=== PATIENT | male | born 1965 | race Caucasian/White ===

== ENCOUNTER 2020-05-04 20:59 | Inpatient (IN) | payer OTHER ==
[~2020-05-04] VITALS: Ht 182.9 cm; Wt 68.0 kg
--- NOTE | 2020-05-04 21:05 | NUR ---
Dr. Henderson at bedside for MSE.
[2020-05-04] MEDS ORDERED: IV NORMAL SALINE 1000 ML BAG IV ONE (21:30)
--- NOTE | 2020-05-04 21:30 | NUR ---
Blood/COVID specimen sent with dental laboratory assistant.
[2020-05-04 21:41] LABS: BASOPHILS % (AUTO) 0.5 % (0.0-2.0); EOSINOPHILS # (AUTO) 0.8 K/uL (0.0-0.7); EOSINOPHILS % (AUTO) 13.4 % (0.0-7.0); HEMATOCRIT 40.3 % (36.7-47.1); HEMOGLOBIN 13.4 g/dL (12.5-16.3); LYMPHOCYTES # (AUTO) 1.5 K/uL (20.0-40.0); LYMPHOCYTES % (AUTO) 25.5 % (20.5-51.5); MEAN CORPUSCULAR HEMOGLOBIN 29.6 uug (23.8-33.4); MEAN CORPUSCULAR HGB CONC 33 g/dL (32.5-36.3); MEAN CORPUSCULAR VOLUME 89.1 fL (73.0-96.2); MONOCYTES # (AUTO) 0.4 K/uL (2.0-10.0); NEUTROPHILS # (AUTO) 3.2 K/uL (1.8-8.9); NEUTROPHILS % (AUTO) 53.6 % (38.5-71.5); PLATELET COUNT (AUTO) 114 K/uL (152-348); RED BLOOD CELL COUNT(AUTO) 4.52 MIL/uL (4.06-5.63)
[2020-05-04 21:45] LABS: CREATININE 0.8 mg/dL (0.6-1.3); POTASSIUM 3.9 mmol/L (3.5-5.1)
[2020-05-04 21:50] LABS: ETHANOL < 3 MG/DL (0-0)
[2020-05-04 21:57] LABS: BILIRUBIN,TOTAL 0.3 mg/dL (0.2-1.0); TOTAL PROTEIN, SERUM 6.6 g/dL (6.4-8.2)
[2020-05-04] MEDS ORDERED: IOHEXOL 350 100 ML INFUS..BTL ONE (22:13)
[2020-05-04] MEDS ORDERED: SWABABLE VALVE TRANSFER SET EA MC ONE (22:13)
[2020-05-04] MEDS ORDERED: IV NORMAL SALINE 250 ML IV ONE (22:13)
--- NOTE | 2020-05-04 22:15 | NUR ---
Pt down for CT of chest with contrast. Informed consent signed, witnessed by RN.
[2020-05-04 22:30] LABS: *AMPHETAMINE, URINE POSITIVE (NEGATIVE); *BARBITURATE, URINE NEGATIVE (NEGATIVE); *CANNABINOID, URINE POSITIVE (NEGATIVE); *COCCAINE, URINE NEGATIVE (NEGATIVE); *OPIATE, URINE NEGATIVE (NEGATIVE); *PHENCYCLIDINE SCREEN,URINE NEGATIVE (NEGATIVE)
--- NOTE | 2020-05-04 22:45 | NUR ---
Pt back from CT, not in active distress.
--- NOTE | 2020-05-04 23:14 | NUR ---
Noted with abnormal rhythm on monitor R: 56, appears to be ventrivular abnormality. Repeat EKG done, shows sinus bradycardia with ventricular pre-excitement. Relayed results to .
--- NOTE | 2020-05-04 23:30 | NUR ---
Dr Henderson spoke with pt. Pending admission. Running insurance information at this time.
--- NOTE | 2020-05-04 23:57 | NUR ---
ROSELINE michael (RACIEL from [facility]) patient's clinicals provided over the phone. Will fax clinicals and she will call us back.
--- NOTE | 2020-05-05 00:13 | NUR ---
[facility] contacted to page Admitting MD for panel call.
--- NOTE | 2020-05-05 00:21 | NUR ---
Pt accepted by Dr. Patterson for admission. 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 Belongings list completed, and all belongings with patient. Called for report. Randi DALE, with patient, will call me back.
[2020-05-05] MEDS ORDERED: HYDROCODONE/APAP 5-325MG TABLET PO PRN (00:30)
[2020-05-05] MEDS ORDERED: ACETAMINOPHEN 325 MG TABLET PO PRN (00:30)
[2020-05-05] MEDS ORDERED: ONDANSETRON 4 MG/2 ML VIAL IV PRN (00:30)
[2020-05-05] MEDS ORDERED: Z GUARD REMEDY PASTE 57 GM TUBE TOP PRN (00:30)
[2020-05-05] MEDS ORDERED: MAGNESIUM HYDROXIDE 30 ML LIQUID UDC PO PRN (00:30)
--- NOTE | 2020-05-05 00:33 | NUR ---
Report given to Randi DALE.
[2020-05-05] MEDS ORDERED: ASPIRIN 325 MG TABLET PO ONE (00:45)
--- NOTE | 2020-05-05 01:10 | NUR ---
Pt wheeled to Room 303. Warm handoff to Randi DALE, in stable condition.
[2020-05-05 01:20] VITALS: BP 125/83
--- NOTE | 2020-05-05 01:20 | NUR ---
patient received from ER. v/s stable. no s/s of acute distress noted. aaox3. able to walk to bathroom by self. Iv intact and patent at this time. safety precautions provided. bed in lowest position, side rails up x2 and bed alarm on. call light within reach. belongings list completed. ID band on. patient in stable condition. will continue to monitor and assess.
--- NOTE | 2020-05-05 05:53 | NUR ---
patient resting comfortably. SB on tele monitor at 57bpm with WPW syndrome. no s/s of acute distress noted. v/s stable at this time.
[2020-05-05 08:00] VITALS: BP 130/82
[2020-05-05] MEDS ORDERED: ASPIRIN 81 MG TAB.CHEW PO SCH (11:15)
--- NOTE | 2020-05-05 11:28 | NUR ---
Map Clerk Consultation: 10:50am: SW met with this patient to complete a social media project manager assessment. Reason for consultation is homelessness. Patient is a 54 year old male who was brought into the ED on 05/04/2020 by ambulance, complaining of chest pain. Patient is in his hospital bed, awake, oriented, receptive to meeting with this SW. Patient was cooperative with answering this social services designee's questions. Patient states that he has been homeless for the past 3 months, after eloping from [facility]. Patient is ambulatory and independent with his ADL's. Patient has [employer] insurance, and states he receives food stamps and [employer] benefits. Patient reports the following medical history: HIV positive, schizophrenia. Patient reports he has not taken his medications for a couple of months, and instead has been use meth to self-medicate. Patient stated he uses meth about twice a week, and that the last time he used meth was 2 days ago. Patient denies use of alcohol. Patient reports having auditory hallucinations, and stated he was hearing voices at time of this interview. Patient stated that the voices were irritating. Patient denied visual hallucinations. Patient reports hx of 2 suicidal attempts in the , however no current SI. Patient denied HI. Patient observed to be fidgety in bed, however was cooperative with this SW. Patient's appearance was unkempt. Community resources and discharge plans discussed with the patient, and patient stated that he wanted to talk to his outsole caser at [employer], Scarlet Blanc, because she was assisting him with housing. Patient stated that he did not have her phone number, and SW offered to provide patient with the phone number to [employer]. Patient was agreeable. SW also discussed the list of resources that SW could provide the patient, and patient was agreeable. SW provided patient with the following information/resources: 1) Phone number to [facility] [facility]: [phone] (patient stated he knew where they were located, [address]) 2) Homeless resource packet: a list of year round shelters [facility] [address], ; [facility] [address] [facility], ; and [facility] [address] [facility] [address], [phone], along with resources for places to go for food, showers, substance abuse treatment, mental health services, community medical clinics, and pharmacies. These include the following: the [facility] homeless directory which provides a list of places that individuals can go to throughout the week for hot meals, sack lunches, food pantries, and showers; a list of mental health clinics: [facility] [address] [place] [address], ; [facility] [address] [place] [address], ; [facility] [address] [place] [address], ; a list of medical clinics: [facility] [address], [place]. [place], ; [facility] [address] [facility], [facility] [address] [place] [place] [address]; [facility] [address] [facility] [place] [address], ; and a list of substance abuse programs: [facility] Substance Abuse Self-helpline ; [facility] ; [facility] ; [facility] ; [facility] ; [facility] [phone]; [facility] [phone]; locations of pharmacies within medical clinics and throughout the [facility]. Patient stated he wanted to talk to his outsole caser Scarlet before discussing any other discharge plan. SW acknowledged patient's wishes. ROSELINE stated that SW would follow-up with the patient later today, and patient verbalized agreement.
--- NOTE | 2020-05-05 11:43 | NUR ---
pt removed his iv heplock and removed the heart monitor and said he wants to leave the hospital made aware
--- NOTE | 2020-05-05 11:44 | NUR ---
pt left the hospital against medical advise with proper clothing and pt is axox3 leo mendoza and charge nurse and nursing tipple supervisor made aware pt left the hospital in proper clothing and walk from the hospital
--- NOTE | 2020-05-05 12:07 | NUR ---
11:35am: ROSELINE inforrmed by SUYAPA Johns that patient left AMA. No further SS interventions needed at this time.
== END 2020-05-05 11:45 | disposition left against medical advice (07) | DRG 198 ==
LOC: ER 21:02 → TELE3 23:27
PROVIDERS: ADMIT Nurse Practitioner Acute Care; ATTEND Nurse Practitioner Acute Care
DX: I25.10 Atherosclerotic heart disease of native coronary artery without angina pectoris (principal); R07.9 Chest pain, unspecified; I45.6 Pre-excitation syndrome; Z96.641 Presence of right artificial hip joint; Z59.0 Homelessness; Z91.19 Patient's noncompliance with other medical treatment and regimen; Z87.891 Personal history of nicotine dependence; R91.8 Other nonspecific abnormal finding of lung field; E44.1 Mild protein-calorie malnutrition; E88.09 Other disorders of plasma-protein metabolism, not elsewhere classified; D69.59 Other secondary thrombocytopenia; F32.9 Major depressive disorder, single episode, unspecified; F41.9 Anxiety disorder, unspecified; F20.9 Schizophrenia, unspecified; R73.9 Hyperglycemia, unspecified; F14.90 Cocaine use, unspecified, uncomplicated; Z71.6 Tobacco abuse counseling; F15.10 Other stimulant abuse, uncomplicated; Z91.14 Patient's other noncompliance with medication regimen; F12.90 Cannabis use, unspecified, uncomplicated
CPT/HCPCS: 36415; 70030-TC; 71045; 71275; 85025; 85730; 93005; A4663; G0378; G0480; J7030; J7050; Q9967